=== PATIENT | female | born 1985 | race Caucasian/White ===

== ENCOUNTER 2017-12-12 09:49 | Emergency (ER) | payer SELFPAY ==
[2017-12-12 10:43] LABS: Absolute Lymphocytes (CBC) 2.7 K/uL (0.7-4.9); Absolute Monocytes 0.7 K/uL (0.1-1.3); Absolute Neutrophil 8.3 K/uL (1.8-8.0); Basophils % 1.2 % (0-1.3); Eosinophils % 1.5 % (0-4.4); Lymphocytes % 22.7 % (15.3-44.8); MCH 23.9 pg (27.0-35.0); MCV 74.7 fL (80-100); MPV 8.7 fL (7.6-11.3); Monocytes % 5.6 % (3.3-12.3); RBC Red Blood Cell Count 5.09 M/uL (3.86-4.86)
--- NOTE | 2017-12-12 10:46 | RAD REPORT ---
EXAM DESCRIPTION: RAD - Hand Right 3 View - 12/12/2017 10:39 am CLINICAL HISTORY: Fall, hand pain, pain primarily right thumb COMPARISON: None. FINDINGS: No fracture is identified. There is no dislocation or periosteal reaction noted. No forei gn body or air in the soft tissues. Soft tissue swelling is present. IMPRESSION: No fracture seen. No acute bone or joint finding.
[2017-12-12 10:48] LABS: Potassium 3.2 mEq/L (3.6-5.0)
[2017-12-12] MEDS ORDERED: cloNIDine HCl 0.1 MG TAB ONE (10:59)
[2017-12-12] MEDS ORDERED: POTASSIUM CL SA 10 MEQ TAB PO ONE (11:18)
--- NOTE | 2017-12-12 11:23 | RAD REPORT ---
EXAM DESCRIPTION: CT - Head Brain Wo Cont - 12/12/2017 11:14 am CLINICAL HISTORY: Syncope COMPARISON: October 2016 TECHNIQUE: Axial 5 mm thick images of the head were obtained without IV contrast. All CT scans are performed using dose optimization technique as appropriate and may include automated exposure control or mA/KV adjustment according to patient size. FINDINGS: No intracranial hemorrhage, mass, edema or shift of mid-line structures. No acute infarcti on changes seen. No abnormal extra-axial fluid collections. Ventricles are normal. Physiologic calcif ications are present. Mastoid air cells and visualized portions of the paranasal sinuses are clear. No acute bony findings. IMPRESSION: Negative non-contrast CT head examination. No significant change from comparison.
[2017-12-12] MEDS ORDERED: AMLODIPINE 5 MG TAB ONE (12:11)
--- NOTE | 2017-12-12 13:06 | ER ---
Nurse's Notes [facility] Name: Vero Magallanes Age: 32 yrs Sex: Female : 1985 Arrival Date: 12/12/2017 Time: 09:54 Bed 14 Private MD: Diagnosis: Syncope and collapse;Essential (primary) hypertension Presentation: 12/12 10:24 Presenting complaint: Patient states: " I have been having blackouts for about a month ph now, I had one last night walking up the steps to my porch. When I fell I landed on both of my hands but my R thumb is really swollen now,". Transition of care: patient was not received from another setting of care. Onset of symptoms was December 12, 2017. Care prior to arrival: None. 10:24 Method Of Arrival: Ambulatory ph 10:24 Acuity: CASSIDY 3 ph Triage Assessment: 10:20 Injury Description: Fell and injured her thumb, thumb is swollen, no bruising noted at rb1 this time. 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 - Social history:: Smoking status: Patient uses tobacco products, smokes one-half pack cigarettes per day. Screenin:20 Abuse screen: Denies threats or abuse. Nutritional screening: No deficits noted. rb1 Tuberculosis screening: No symptoms or risk factors identified. Fall Risk Fall in past 12 months (25 points). No secondary diagnosis (0 pts). IV access (20 points). Ambulatory Aid- None/Bed Rest/Nurse Assist (0 pts). Gait- Normal/Bed Rest/Wheelchair (0 pts) Mental Status- Oriented to own ability (0 pts). Total Amado Fall Scale indicates Low Risk Score (25-44 pts). Fall prevention measures have been instituted. Side Rails Up X 2 Placed close to Nursing Station 1:1 attendant Assigned to Pt. Frequent Obs/Assesments occuring Family Present and informed to notify staff if they need to leave bedside As available Patient and Family Educated on Fall Prevention Program and strategies. Assessment: 10:20 General: Appears in no apparent distress. comfortable, obese, Behavior is calm, rb1 cooperative, Denies fever. Pain: Complains of pain in right thumb Pain currently is 3 out of 10 on a pain scale. Neuro: Level of Consciousness is awake, alert, obeys commands, Oriented to person, place, time, situation. Cardiovascular: Capillary refill < 3 seconds is brisk in bilateral fingers. Respiratory: Reports shortness of breath on exertion Airway is patent Respiratory effort is even, unlabored, Respiratory pattern is regular, symmetrical. GI: Reports nausea. : No signs and/or symptoms were reported regarding the genitourinary system. Derm: Skin is pink, warm \\T\\ dry. Musculoskeletal: Swelling present in right thumb and right hand. 11:18 Reassessment: Patient appears in no apparent distress at this time. No changes from rb1 previously documented assessment. 12:17 Reassessment: Patient appears in no apparent distress at this time. Patient and/or rb1 family updated on plan of care and expected duration. Pain level reassessed. Patient is alert, oriented x 3, equal unlabored respirations, skin warm/dry/pink. 13:10 Reassessment: Patient appears in no apparent distress at this time. Patient and/or rb1 family updated on plan of care and expected duration. Pain level reassessed. Patient is alert, oriented x 3, equal unlabored respirations, skin warm/dry/pink. Vital Signs: 10:26 BP 208 / 113; Pulse 93; Resp 18; Temp 97.8(TE); Pulse Ox 100% on R/A; Weight 107.95 kg; ph Height 5 ft. 3 in. (160.02 cm); Pain 3/10; 10:40 BP 191 / 118; Pulse 79; Resp 17; Pulse Ox 99% on R/A; Pain 3/10; rb1 11:30 BP 173 / 106; Pulse 71; Resp 19; Pulse Ox 100% on R/A; rb1 13:01 BP 157 / 97; Pulse 58; Resp 16; Pulse Ox 96% on R/A; rb1 10:26 Body Mass Index 42.16 (107.95 kg, 160.02 cm) ph 10:40 At time of Clonidine 0.2 mg PO administration rb1 ED Course: 09:54 Patient arrived in ED. sb2 10:17 Renee Nicolas FNP-C [facility]. kb 10:17 Nakul Molina MD is Attending Physician. kb 10:20 Patient has correct armband on for positive identification. Bed in low position. Call rb1 light in reach. Side rails up X 1. Pulse ox on. NIBP on. 10:23 Jumana Leon, RN is Primary Nurse. rb1 10:26 Triage completed. ph 10:28 Arm band placed on Patient placed in an exam room. ph 10:36 Inserted saline lock: 22 gauge in left antecubital area, using aseptic technique. Blood aj1 collected. IV inserted by manager department Khoi. 11:11 CT completed. Patient tolerated procedure well. Patient moved to MO via wheelchair. Patient moved back from MO. 13:33 No provider procedures requiring assistance completed. IV discontinued, intact, rb1 bleeding controlled, No redness/swelling at site. Pressure dressing applied. Administered Medications: 10:40 Drug: cloNIDine 0.2 mg Route: PO; rb1 11:45 Follow up: Response: No adverse reaction; Blood sugar is lowered; BP 173/106, P 71. rb1 Provider notified. 11:01 Drug: Potassium Chloride 40 mEq Route: PO; rb1 11:54 Follow up: Response: No adverse reaction rb1 11:53 Drug: Norvasc 10 mg {Note: BP 173/106, P 67.} Route: PO; rb1 13:01 Follow up: Response: No adverse reaction; Blood pressure is lowered rb1 Intake: Outcome: 13:06 Discharge ordered by . kb 13:33 Discharged to home ambulatory. rb1 13:33 Condition: stable 13:33 Discharge instructions given to patient, Instructed on discharge instructions, follow up and referral plans. Demonstrated understanding of instructions, follow-up care, Prescriptions given X none 13:34 Patient left the ED. rb1 Signatures: Renee Nicolas FNP-C FNP-Ckb Johnson, Angela, RN RN aj1 Camila Cassidy RN RN Mary Dupont Jumana Leon, RN RN rb1 Myrtle Lopez sb2 Corrections: (The following items were deleted from the chart) 10:52 10:20 Fall Risk Fall in past 12 months (25 points). No secondary diagnosis (0 pts). No rb1 IV (0 pts). Ambulatory Aid- None/Bed Rest/Nurse Assist (0 pts). Gait- Normal/Bed Rest/Wheelchair (0 pts) Mental Status- Oriented to own ability (0 pts). Total Amado Fall Scale indicates Low Risk Score (25-44 pts). Fall prevention measures have been instituted. Side Rails Up X 2 Placed close to Nursing Station 1:1 attendant Assigned to Pt. Frequent Obs/Assesments occuring Family Present and informed to notify staff if they need to leave bedside As available Patient and Family Educated on Fall Prevention Program and strategies. rb1
--- NOTE | 2017-12-12 13:06 | EDPHYS ---
Physician Documentation [facility] Name: Vero Magallanes Age: 32 yrs Sex: Female : 1985 Arrival Date: 12/12/2017 Time: 09:54 Bed 14 Private MD: ED Physician Nakul Molina HPI: 12/12 10:30 This 32 yrs old Female presents to ER via Ambulatory with complaints of kb Fainting, Thumb Injury. 10:30 The patient has experienced syncope, lost consciousness. Onset: The symptoms/episode kb began/occurred last night. Duration: The patient has had multiple episodes, that last an unknown period of time. Context: the episode(s) was witnessed, by no one, occurred at home, occurred while the patient was sitting, Just prior to the episode the patient experienced fatigue. Associated injury: Right upper extremity: right hand, decreased range of motion, pain, swelling. Associated signs and symptoms: The patient has no apparent associated signs or symptoms. Current symptoms: Currently, the patient is not experiencing any symptoms, the patient feels back to baseline, no decreased level of consciousness, no confusion, no dysphasia, no headache, no paralysis, no visual changes. The patient has experienced similar episodes in the past, a few times. The patient has not recently seen a physician. Pt states she "blacked out" last night and this morning her right thumb was sore, swollen and hard to move. States she has blacked out 3 times this month. States she just gets really tired and then it happens. Denies headaches, dizziness, lightheadedness, visual changes. States she didn't take her BP meds today because she is worried that is the cause. States she was started on clonidine 0.2mg 2 months ago, which her doctor increased to 0.3mg this month because her pressure was still high. Reports she was also started on Norvasc this month, but is unsure of the dosage. . 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 - Social history:: Smoking status: Patient uses tobacco products, smokes one-half pack cigarettes per day. ROS: 10:30 Constitutional: Negative for fever, chills, and weight loss, Cardiovascular: Negative kb for chest pain, palpitations, and edema, Respiratory: Negative for shortness of breath, cough, wheezing, and pleuritic chest pain, Abdomen/GI: Negative for abdominal pain, nausea, vomiting, diarrhea, and constipation, Back: Negative for injury and pain, : Negative for injury, bleeding, discharge, and swelling, Skin: Negative for injury, rash, and discoloration. 10:30 MS/extremity: Positive for decreased range of motion, pain, swelling, of the right thumb. 10:30 Neuro: Positive for syncope. Exam: 10:30 Constitutional: This is a well developed, well nourished patient who is awake, alert, kb and in no acute distress. Head/Face: Normocephalic, atraumatic. Eyes: Pupils equal round and reactive to light, extra-ocular motions intact. Lids and lashes normal. Conjunctiva and sclera are non-icteric and not injected. Cornea within normal limits. Periorbital areas with no swelling, redness, or edema. ENT: Nares patent. No nasal discharge, no septal abnormalities noted. Tympanic membranes are normal and external auditory canals are clear. Oropharynx with no redness, swelling, or masses, exudates, or evidence of obstruction, uvula midline. Mucous membranes moist. Neck: Trachea midline, no thyromegaly or masses palpated, and no cervical lymphadenopathy. Supple, full range of motion without nuchal rigidity, or vertebral point tenderness. No Meningismus. Chest/axilla: Normal chest wall appearance and motion. Nontender with no deformity. No lesions are appreciated. Cardiovascular: Regular rate and rhythm with a normal S1 and S2. No gallops, murmurs, or rubs. Normal PMI, no JVD. No pulse deficits. Respiratory: Lungs have equal breath sounds bilaterally, clear to auscultation and percussion. No rales, rhonchi or wheezes noted. No increased work of breathing, no retractions or nasal flaring. Abdomen/GI: Soft, non-tender, with normal bowel sounds. No distension or tympany. No guarding or rebound. No evidence of tenderness throughout. Back: No spinal tenderness. No costovertebral tenderness. Full range of motion. MS/ Extremity: Pulses equal, no cyanosis. Neurovascular intact. Full, normal range of motion. Neuro: Awake and alert, GCS 15, oriented to person, place, time, and situation. Cranial nerves II-XII grossly intact. Motor strength 5/5 in all extremities. Sensory grossly intact. Cerebellar exam normal. Normal gait. 10:30 Musculoskeletal/extremity: Extremities: grossly normal except: noted in the right thumb: decreased ROM, pain, swelling, tenderness, ROM: limited active range of motion, in the right thumb, Circulation is intact in all extremities. Sensation intact. Vital Signs: 10:26 BP 208 / 113; Pulse 93; Resp 18; Temp 97.8(TE); Pulse Ox 100% on R/A; Weight 107.95 kg; ph Height 5 ft. 3 in. (160.02 cm); Pain 3/10; 10:40 BP 191 / 118; Pulse 79; Resp 17; Pulse Ox 99% on R/A; Pain 3/10; rb1 11:30 BP 173 / 106; Pulse 71; Resp 19; Pulse Ox 100% on R/A; rb1 13:01 BP 157 / 97; Pulse 58; Resp 16; Pulse Ox 96% on R/A; rb1 10:26 Body Mass Index 42.16 (107.95 kg, 160.02 cm) ph 10:40 At time of Clonidine 0.2 mg PO administration rb1 MDM: 10:17 Patient medically screened. kb 10:30 Data reviewed: vital signs, nurses notes. Data interpreted: Pulse oximetry: on room air kb is 100 %. Interpretation: normal. 13:06 Counseling: I had a detailed discussion with the patient and/or guardian regarding: the kb historical points, exam findings, and any diagnostic results supporting the discharge/admit diagnosis, lab results, radiology results, the need for outpatient follow up, a family practitioner, to return to the emergency department if symptoms worsen or persist or if there are any questions or concerns that arise at home. 12/12 10:22 Order name: CBC with Diff kb 12/12 10:22 Order name: Basic Metabolic Panel kb 12/12 10:22 Order name: CT Head Brain wo Cont kb 12/12 10:22 Order name: Hand Right 3 View XRAY kb 12/12 10:46 Order name: CBC with Automated Diff; Complete Time: 10:48 EDMS 12/12 10:49 Order name: Basic Metabolic Panel; Complete Time: 10:50 EDMS 12/12 10:22 Order name: EKG; Complete Time: 10:22 kb 12/12 10:22 Order name: EKG - Nurse/Tech; Complete Time: 10:56 kb 12/12 10:22 Order name: IV Start; Complete Time: 10:38 kb 12/12 10:47 Order name: RAD; Complete Time: 10:48 EDMS 12/12 11:24 Order name: CT; Complete Time: 11:36 EDMS Administered Medications: 10:40 Drug: cloNIDine 0.2 mg Route: PO; rb1 11:45 Follow up: Response: No adverse reaction; Blood sugar is lowered; BP 173/106, P 71. rb1 Provider notified. 11:01 Drug: Potassium Chloride 40 mEq Route: PO; rb1 11:54 Follow up: Response: No adverse reaction rb1 11:53 Drug: Norvasc 10 mg {Note: BP 173/106, P 67.} Route: PO; rb1 13:01 Follow up: Response: No adverse reaction; Blood pressure is lowered rb1 Disposition: 12/12/17 13:06 Discharged to Home. Impression: Syncope and collapse, Essential (primary) hypertension. - Condition is Stable. - Discharge Instructions: Hypertension, [id number], Syncope, [id number]. - Work release form, Medication Reconciliation Form, Thank You Letter, Antibiotic Education, Prescription Opioid Use form. - Follow up: Emergency Department; When: As needed; Reason: Worsening of condition. Follow up: Private Physician; When: 2 - 3 days; Reason: Recheck today's complaints, Continuance of care, Re-evaluation by your physician. Addendum: 12/16/2017 07:14 Co-signature as Attending Physician, Nakul Molina MD. g s Signatures: Dispatcher [facility] Renee Nicolas, CARI FUENTES-Camila Parada RN RN Jumana Leon, RN RN rb1 Nakul Molina MD MORIN gs
--- NOTE | 2017-12-12 15:57 | EKG ---
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
== END 2017-12-12 13:34 | disposition home or self-care (01) ==
LOC: ER 09:49
DX: I10 Essential (primary) hypertension (principal); F32.9 Major depressive disorder, single episode, unspecified; F17.210 Nicotine dependence, cigarettes, uncomplicated; Z88.6 Allergy status to analgesic agent
CPT/HCPCS: 36415; 70450; 80048; 85025; 93005; 99284

== ENCOUNTER 2018-05-08 18:31 | Inpatient (IN) | payer SELFPAY ==
[2018-05-08] MEDS ORDERED: LABETALOL 20 MG/4ML SYRINGE IV ONE ×2 (19:09→21:37)
[2018-05-08 19:46] LABS: Absolute Lymphocytes (CBC) 2.5 K/uL (0.7-4.9); Absolute Monocytes 0.9 K/uL (0.1-1.3); Absolute Neutrophil 12.3 K/uL (1.8-8.0); Basophils % 0.2 % (0-1.3); Eosinophils % 1.2 % (0-4.4); Hematocrit 39.9 % (36.0-45.0); Lymphocytes % 15.8 % (15.3-44.8); MCH 23.2 pg (27.0-35.0); MCV 72.4 fL (80-100); Monocytes % 5.7 % (3.3-12.3); RBC Red Blood Cell Count 5.52 M/uL (3.86-4.86)
[2018-05-08 19:47] LABS: BUN Blood Urea Nitrogen 6 mg/dL (7-18); Bicarbonate 26 mmol/L (21-32); Glucose Level 198 mg/dL (74-106); Sodium Level 134 mmol/L (136-145)
[2018-05-08 19:49] LABS: Potassium 2.5 mmol/L (3.5-5.1)
[2018-05-08] MEDS ORDERED: NA CHLORIDE 0.9% 250 ML ONE (20:23)
[2018-05-08] MEDS ORDERED: POTASSIUM CL SA 10 MEQ TAB PO ONE (20:23)
[2018-05-08] MEDS ORDERED: KCL 20 MEQ/100 mL IVPB 20 MEQ/100 ML BAG IV ONE (20:23)
--- NOTE | 2018-05-08 20:46 | RAD REPORT ---
EXAM DESCRIPTION: CT - Head Brain Wo Cont - 05/08/2018 8:36 pm CLINICAL HISTORY: Headache, nausea, facial numbness COMPARISON: CT head December 12 TECHNIQUE: Axial 5 mm thick images of the head were obtained without IV contrast. All CT scans are performed using dose optimization technique as appropriate and may include automated exposure control or mA/KV adjustment according to patient size. FINDINGS: No intracranial hemorrhage, mass, edema or shift of mid-line structures. No acute cortical based infarction seen. A 6 millimeter area of diminished attenuation is present in the right frontal lobe white matter near the lateral ventricle. This is new from the November examination. Diminished att enuation at the genu of the left internal capsule is similar to the comparison. There is additional d iminished attenuation in the posterior limb internal capsule on the left also stable from prior imagi ng. Ventricles are normal. Mastoid air cells and visualized portions of the paranasal sinuses are clear. No acute bony findings. IMPRESSION: No intracranial hemorrhage and no acute cortical based infarction. New 6 mm area of diminished attenuation right frontal lobe white matter. Although the patient is you ng, an acute or subacute ischemic injury is not excluded. Diminished attenuation in the genu and posterior limb internal capsule on the left stable from prior imaging. Patient has multiple sites of abnormal attenuation not typical for a patient this age. Follow-up MR ivania baron would be recommended.
--- NOTE | 2018-05-08 21:18 | EDPHYS ---
Physician Documentation [facility] Name: Vero Magallanes Age: 32 yrs Sex: Female : 1985 Arrival Date: 05/08/2018 Time: 18:33 Bed 7 Private MD: None, None ED Physician Armando Jennings HPI: 05/08 19:14 This 32 yrs old Female presents to ER via Ambulatory with complaints of jr8 Headache, Vomiting. 19:14 The patient complains of pain to the top of head and forehead. The patient describes jr8 the headache as throbbing. Onset: The symptoms/episode began/occurred acutely, today. Associated signs and symptoms: Pertinent positives: nausea, Photophobia. Severity of symptoms: At its worst the pain was moderate, in the emergency department the pain is unchanged. Headache History: Denies prior headaches. The symptoms are alleviated by nothing. The patient has not experienced similar symptoms in the past. The patient has not recently seen a physician. History of hypertension. Stated that she was told to alternate her BP meds but to only take one med per day. Stated that earlier this morning started with headache that has not been relieved. 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 - Social history:: Smoking status: Patient uses tobacco products, smokes one-half pack cigarettes per day. - Ebola Screening: : Patient negative for fever greater than or equal to 101.5 degrees Fahrenheit, and additional compatible Ebola Virus Disease symptoms Patient denies exposure to infectious person Patient denies travel to an Ebola-affected area in the 21 days before illness onset No symptoms or risks identified at this time. ROS: 19:14 Eyes: Negative for injury, pain, redness, and discharge, ENT: Negative for injury, jr8 pain, and discharge, Neck: Negative for injury, pain, and swelling, Cardiovascular: Negative for chest pain, palpitations, and edema, Respiratory: Negative for shortness of breath, cough, wheezing, and pleuritic chest pain, Back: Negative for injury and pain, MS/Extremity: Negative for injury and deformity, Skin: Negative for injury, rash, and discoloration. 19:14 Abdomen/GI: Positive for nausea, Negative for abdominal pain, vomiting, diarrhea, constipation, abdominal cramps, abdominal distension, anorexia, dysphagia, hematemesis, black/tarry stool, rectal pain, rectal bleeding, bowel incontinence, flatulence. 19:14 Neuro: Positive for headache, tingling, visual changes, Negative for altered mental status, dizziness, gait disturbance, hearing loss, loss of consciousness, numbness, seizure activity, speech changes, syncope, near syncope, tingling, tinnitus, tremor, weakness. Exam: 19:14 Eyes: Pupils equal round and reactive to light, extra-ocular motions intact. Lids and jr8 lashes normal. Conjunctiva and sclera are non-icteric and not injected. Cornea within normal limits. Periorbital areas with no swelling, redness, or edema. ENT: Nares patent. No nasal discharge, no septal abnormalities noted. Tympanic membranes are normal and external auditory canals are clear. Oropharynx with no redness, swelling, or masses, exudates, or evidence of obstruction, uvula midline. Mucous membranes moist. Neck: Trachea midline, no thyromegaly or masses palpated, and no cervical lymphadenopathy. Supple, full range of motion without nuchal rigidity, or vertebral point tenderness. No Meningismus. Cardiovascular: Regular rate and rhythm with a normal S1 and S2. No gallops, murmurs, or rubs. Normal PMI, no JVD. No pulse deficits. Respiratory: Lungs have equal breath sounds bilaterally, clear to auscultation and percussion. No rales, rhonchi or wheezes noted. No increased work of breathing, no retractions or nasal flaring. Abdomen/GI: Soft, non-tender, with normal bowel sounds. No distension or tympany. No guarding or rebound. No evidence of tenderness throughout. Back: No spinal tenderness. No costovertebral tenderness. Full range of motion. Skin: Warm, dry with normal turgor. Normal color with no rashes, no lesions, and no evidence of cellulitis. MS/ Extremity: Pulses equal, no cyanosis. Neurovascular intact. Full, normal range of motion. Neuro: Awake and alert, GCS 15, oriented to person, place, time, and situation. Cranial nerves II-XII grossly intact. Motor strength 5/5 in all extremities. Sensory grossly intact. Cerebellar exam normal. Normal gait. Slight nasolabial fold difference to right side Vital Signs: 18:49 BP 227 / 130; Pulse 97; Resp 15; Temp 98.4; Pulse Ox 100% on R/A; Weight 104.33 kg; aj Height 5 ft. 4 in. (162.56 cm); 19:14 BP 185 / 100; Pulse 76; Resp 18; Pulse Ox 100% on R/A; aa1 20:00 BP 180 / 73; Pulse 75; Resp 16; Pulse Ox 98% on R/A; aa1 20:48 BP 196 / 120; Pulse 80; Resp 18; Pulse Ox 98% on R/A; aa1 21:00 BP 197 / 115; Pulse 84; Resp 18; Pulse Ox 99% on R/A; aa1 21:17 BP 185 / 98; Pulse 86; Resp 18; Pulse Ox 98% on R/A; aa1 22:10 BP 160 / 101; Pulse 75; Resp 18; Pulse Ox 97% on R/A; aa1 23:00 BP 170 / 108; Pulse 73; Resp 18; Pulse Ox 97% on R/A; aa1 23:41 BP 166 / 100; Pulse 78; Resp 16; Pulse Ox 100% on R/A; aa1 05/09 00:07 BP 168 / 98; Pulse 75; Resp 16; Pulse Ox 97% on R/A; tl2 00:40 BP 170 / 92; Pulse 74; Resp 16; Pulse Ox 97% on R/A; aa1 05/08 18:49 Body Mass Index 39.48 (104.33 kg, 162.56 cm) NIH Stroke Scale Scores: 05/08 19:14 NIHSS Score: 1 jr8 MDM: 18:52 Patient medically screened. jr8 19:14 Data reviewed: vital signs, nurses notes, lab test result(s), EKG, radiologic studies, jr8 CT scan. Data interpreted: Pulse oximetry: on room air is 100 %. Interpretation: normal. Counseling: I had a detailed discussion with the patient and/or guardian regarding: the historical points, exam findings, and any diagnostic results supporting the discharge/admit diagnosis, lab results, radiology results, the need for further work-up and treatment in the hospital. ED course: Consulted Dr. Arevalo who will see patient. Patient admitted to Dr. Calvert to ICU for hypertension control . 21:15 ED course: Unknown onset of when she had facial asymmetry. Could not tell until looking jr8 in mirror. [place] the tingling early this AM. Patient is not a candidate for tPA due to HTN and time of onset. . 05/08 18:52 Order name: CBC with Diff; Complete Time: 20:08 [facility] 05/08 18:52 Order name: Basic Metabolic Panel; Complete Time: 22:11 [facility] 05/08 21:15 Order name: PT-INR; Complete Time: 22:57 [facility] 05/08 21:15 Order name: Ptt, Activated; Complete Time: 22:57 [facility] 05/08 21:18 Order name: Liver (Hepatic) Function; Complete Time: 22:11 [facility] 05/08 21:18 Order name: Magnesium; Complete Time: 22:11 [facility] 05/08 22:31 Order name: CBC with Automated Diff [facility] 05/08 22:31 Order name: CBC with Automated Diff [facility] 05/08 22:31 Order name: Comprehensive Metabolic Panel [facility] 05/08 22:31 Order name: Comprehensive Metabolic Panel [facility] 05/08 22:31 Order name: Lipid Profile [facility] 05/08 22:31 Order name: Lipid Profile [facility] 05/08 19:14 Order name: CT Head Brain wo Cont; Complete Time: 20:47 [facility] 05/08 21:15 Order name: XRAY Chest (1 view) [facility] 05/08 22:16 Order name: Stroke Protocol [facility] 05/08 22:31 Order name: Echo with Doppler [facility] 05/08 22:31 Order name: Magnesium [facility] 05/08 22:31 Order name: Magnesium [facility] 05/08 22:31 Order name: Phosphorus [facility] 05/08 22:31 Order name: Phosphorus [facility] 05/08 22:31 Order name: Chest Pa And Lat (2 Views) [facility] 05/08 18:52 Order name: IV; Complete Time: 19:13 [facility] 05/08 18:52 Order name: EKG - Nurse/Tech; Complete Time: 19:13 8 05/08 22:16 Order name: CONS Physician Consult [facility] 05/08 22:30 Order name: NPO [facility] 05/08 22:30 Order name: NPO [facility] 05/08 22:31 Order name: Physical Therapy Consult [facility] 05/08 22:31 Order name: Speech Therapy Consult [facility] 05/08 22:31 Order name: NPO [facility] 05/08 22:31 Order name: EKG Electrocardiogram [facility] Administered Medications: 19:10 Drug: Labetalol 20 mg Route: IVP; Infused Over: 2 mins; Site: right antecubital; aa1 20:00 Follow up: Response: No adverse reaction; Blood pressure is lowered aa1 20:50 Drug: Potassium Chloride 40 mEq Route: PO; aa1 21:54 Follow up: Response: No adverse reaction aa1 20:50 Drug: Potassium Chloride 20 mEq Route: IV; Rate: calculated rate; Site: right aa1 antecubital; 22:50 Follow up: IV Status: Completed infusion aa1 21:40 Drug: Atorvastatin 40 mg Route: PO; aa1 23:43 Follow up: Response: No adverse reaction aa1 21:40 Drug: PlaVIX 75 mg Route: PO; aa1 23:46 Follow up: Response: No adverse reaction aa1 21:40 Drug: Aspirin Chewable Tablet 162 mg Route: PO; aa1 23:45 Follow up: Response: No adverse reaction aa1 21:41 Drug: Reglan 10 mg Route: IVP; Site: right antecubital; aa1 23:45 Follow up: Response: No adverse reaction; Marked relief of symptoms aa1 21:43 Drug: Benadryl 25 mg Route: IVP; Site: right antecubital; aa1 23:43 Follow up: Response: No adverse reaction; Marked relief of symptoms aa1 21:44 Drug: Decadron - Dexamethasone 10 mg Route: IVP; Site: right antecubital; aa1 23:43 Follow up: Response: No adverse reaction; Marked relief of symptoms aa1 21:45 Drug: Labetalol 10 mg Route: IVP; Infused Over: 2 mins; Site: right antecubital; aa1 23:44 Follow up: Response: No adverse reaction; Blood pressure is lowered aa1 Disposition: 05/09 09:20 Co-signature as Attending Physician, Armando Jennings MD I agree with the assessment and [facility] plan of care. Disposition: 05/08/18 21:17 Hospitalization ordered by Sue Calvert for Inpatient Admission. Preliminary diagnosis are Hypertensive Emergency, Cerebral infarction. - Bed requested for Intensive Care Unit. - Status is Inpatient Admission. aa1 - Condition is Fair. - Problem is new. - Symptoms have improved. UTI on Admission? No NIH Stroke Scale - NIH Stroke Score Date: 05/08/2018 Time: 19:14 Total Score = 1 1a. Level of Consciousness (LOC) - 0(Alert) 1b. Level of Consciousness (LOC) (Year \T\ Age) - 0(Both) 1c. LOC Commands (Open \T\ Closes Eyes/Steward/Stewardess Smoke Room) - 0(Both) 2. Best Gaze (Lateral Gaze Paresis) - 0(Normal) 3. Visual Field Loss - 0(No visual loss) 4. Facial Palsy - 1(Minor Paralysis) 5a. Left Arm: Motor (10-second hold) - 0(No drift) 5b. Right Arm: Motor (10-second hold) - 0(No drift) 6a. Left Leg: Motor (5-second hold - always test supine) - 0(No drift) 6b. Right Leg: Motor (5-second hold - always test supine) - 0(No drift) 7. Limb Ataxia (finger/nose \T\ heel/valentino - test with eyes open) - 0(Absent) 8. Sensory Loss (pinprick arms/legs/face) - 0(Normal) 9. Best Language: Aphasia (description/naming/reading) - 0(No aphasia) 10. Dysarthria (speech clarity - read or repeat words) - 0(Normal) 11. Extinction and Inattention (visual/tactile/auditory/spatial/personal) - 0(No abnormality) Initials: jrDonny Signatures: Dispatcher [employer] Gogo Heller RN RN aa1 Beatriz Montague RN RN aj Anderson, Corey, MD MD cha Roszak, Josh, PA PA jr8 Cynthia Dunne RN RN cg Corrections: (The following items were deleted from the chart) 05/08 21:12 19:14 Onset: The symptoms/episode began/occurred acutely, today, jr8 jr8 21:12 19:14 History of hypertension. Stated that she was told to alternate her BP jr8 meds but to only take one med per day . jr8 21:12 19:14 Neuro: Positive for headache, visual changes, Negative for altered mental jr8 status, dizziness, gait disturbance, hearing loss, loss of consciousness, numbness, seizure activity, speech changes, syncope, near syncope, tingling, tinnitus, tremor, weakness, jr8 21:13 19:14 Eyes: Pupils equal round and reactive to light, extra-ocular motions jr8 intact. Lids and lashes normal. Conjunctiva and sclera are non-icteric and not injected. Cornea within normal limits. Periorbital areas with no swelling, redness, or edema. ENT: Nares patent. No nasal discharge, no septal abnormalities noted. Tympanic membranes are normal and external auditory canals are clear. Oropharynx with no redness, swelling, or masses, exudates, or evidence of obstruction, uvula midline. Mucous membranes moist. Neck: Trachea midline, no thyromegaly or masses palpated, and no cervical lymphadenopathy. Supple, full range of motion without nuchal rigidity, or vertebral point tenderness. No Meningismus. Cardiovascular: Regular rate and rhythm with a normal S1 and S2. No gallops, murmurs, or rubs. Normal PMI, no JVD. No pulse deficits. Respiratory: Lungs have equal breath sounds bilaterally, clear to auscultation and percussion. No rales, rhonchi or wheezes noted. No increased work of breathing, no retractions or nasal flaring. Abdomen/GI: Soft, non-tender, with normal bowel sounds. No distension or tympany. No guarding or rebound. No evidence of tenderness throughout. Back: No spinal tenderness. No costovertebral tenderness. Full range of motion. Skin: Warm, dry with normal turgor. Normal color with no rashes, no lesions, and no evidence of cellulitis. MS/ Extremity: Pulses equal, no cyanosis. Neurovascular intact. Full, normal range of motion. Neuro: Awake and alert, GCS 15, oriented to person, place, time, and situation. Cranial nerves II-XII grossly intact. Motor strength 5/5 in all extremities. Sensory grossly intact. Cerebellar exam normal. Normal gait. jr8 21:17 21:15 HEPATIC FUNCTION+C.LAB.BRZ ordered. EDOH EDMS 21:17 21:15 MAGNESIUM+C.LAB.BRZ ordered. EDOH EDOH 22:19 21:17 Hospitalization Ordered by Sue Calvert MD for Inpatient Admission. cg Preliminary diagnosis is Hypertensive Emergency; Cerebral infarction. Bed requested for Intensive Care Unit. Status is Inpatient Admission. Condition is Fair. Problem is new. Symptoms have improved. UTI on Admission? No. jr8 05/09 01:07 05/08 22:19 05/08/2018 21:17 Hospitalization Ordered by Sue Calvert MD for aa1 Inpatient Admission. Preliminary diagnosis is Hypertensive Emergency; Cerebral infarction. Bed requested for Intensive Care Unit. Status is Inpatient Admission. Condition is Fair. Problem is new. Symptoms have improved. UTI on Admission? No. cg
--- NOTE | 2018-05-08 21:18 | ER ---
Nurse's Notes [facility] Name: Vero Magallanes Age: 32 yrs Sex: Female : 1985 Arrival Date: 05/08/2018 Time: 18:33 Bed 7 Private MD: None, None Diagnosis: Hypertensive Emergency;Cerebral infarction Presentation: 05/08 18:46 Presenting complaint: Patient states: Headache, nausea, and lip numbness that patient aj woke up with. Transition of care: patient was not received from another setting of care. Onset of symptoms was May 08, 2018. Risk Assessment: Do you want to hurt yourself or someone else? Patient reports no desire to harm self or others. Initial Sepsis Screen: Does the patient meet any 2 criteria? No. Patient's initial sepsis screen is negative. Does the patient have a suspected source of infection? No. Patient's initial sepsis screen is negative. Care prior to arrival: None. 18:46 Method Of Arrival: Ambulatory aj 18:46 Acuity: CASSIDY 2 aj Triage Assessment: 18:49 Headache History: The patient has had previous headaches. General: Appears in no aj apparent distress. comfortable, Behavior is calm, cooperative, appropriate for age. Pain: Complains of pain in face and scalp. Neuro: Level of Consciousness is awake, alert, obeys commands, Oriented to person, place, time, situation, Appropriate for age Upper Leather Cutter are equal bilaterally Moves all extremities. Full function Gait is steady, Speech is normal, Facial symmetry appears normal, Reports dizziness, headache. Respiratory: Airway is patent Respiratory effort is even, unlabored, Respiratory pattern is regular, symmetrical. Derm: Skin is intact, is healthy with good turgor, Skin is pink, warm \T\ dry. normal. 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 - Social history:: Smoking status: Patient uses tobacco products, smokes one-half pack cigarettes per day. - Ebola Screening: : Patient negative for fever greater than or equal to 101.5 degrees Fahrenheit, and additional compatible Ebola Virus Disease symptoms Patient denies exposure to infectious person Patient denies travel to an Ebola-affected area in the 21 days before illness onset No symptoms or risks identified at this time. Screenin:17 Abuse screen: Denies threats or abuse. Denies injuries from another. Nutritional aa1 screening: No deficits noted. Tuberculosis screening: No symptoms or risk factors identified. Fall Risk None identified. Assessment: 19:17 General: Appears in no apparent distress. comfortable, Behavior is calm, cooperative, aa1 appropriate for age. Pain: Complains of pain in forehead and top of head Quality of pain is described as aching, throbbing, Pain began this morning Is continuous. Neuro: Level of Consciousness is awake, alert, obeys commands, Oriented to person, place, time, situation, Moves all extremities. Full function Speech is normal, Facial symmetry appears normal, Pupils are PERRLA, Reports headache parietal area, frontal area. Cardiovascular: Denies chest pain, palpitations, shortness of breath. Respiratory: Airway is patent Respiratory effort is even, unlabored, Respiratory pattern is regular, symmetrical. GI: Reports nausea. : No signs and/or symptoms were reported regarding the genitourinary system. EENT: No signs and/or symptoms were reported regarding the EENT system. Derm: Skin is intact, is healthy with good turgor, Skin is pink, warm \T\ dry. Musculoskeletal: Circulation, motion, and sensation intact. Capillary refill < 3 seconds. 20:48 Reassessment: Patient appears in no apparent distress at this time. Patient and/or aa1 family updated on plan of care and expected duration. Pain level reassessed. Patient is alert, oriented x 3, equal unlabored respirations, skin warm/dry/pink. Pt back from CT. BP increased at this time. PA notified. 21:17 Reassessment: Per PA, hold Cardene drip at this time and repeat labetalol IVP instead aa1 since BP has decreased to 185/98. Will continue to monitor. Awaiting bed assignment for ICU. 22:00 Reassessment: Patient appears in no apparent distress at this time. Patient and/or aa1 family updated on plan of care and expected duration. Pain level reassessed. Patient is alert, oriented x 3, equal unlabored respirations, skin warm/dry/pink. Awaiting admission to ICU Patient states feeling better. 23:13 Reassessment: Patient appears in no apparent distress at this time. Patient and/or aa1 family updated on plan of care and expected duration. Pain level reassessed. Patient is alert, oriented x 3, equal unlabored respirations, skin warm/dry/pink. Attempted to call report to ICU, was told nurse is currently receiving another pt and will call back when ready for pt to come up to unit. 05/09 00:25 Reassessment: Patient appears in no apparent distress at this time. Patient and/or aa1 family updated on plan of care and expected duration. Pain level reassessed. Patient is alert, oriented x 3, equal unlabored respirations, skin warm/dry/pink. Spoke with ICU staff again. Nurse is still in with previous admission and will call back when pt can come to the unit. 00:40 Reassessment: Patient appears in no apparent distress at this time. Patient and/or aa1 family updated on plan of care and expected duration. Pain level reassessed. Patient is alert, oriented x 3, equal unlabored respirations, skin warm/dry/pink. Report given to Jeff in ICU. Vital Signs: 05/08 18:49 BP 227 / 130; Pulse 97; Resp 15; Temp 98.4; Pulse Ox 100% on R/A; Weight 104.33 kg; aj Height 5 ft. 4 in. (162.56 cm); 19:14 BP 185 / 100; Pulse 76; Resp 18; Pulse Ox 100% on R/A; aa1 20:00 BP 180 / 73; Pulse 75; Resp 16; Pulse Ox 98% on R/A; aa1 20:48 BP 196 / 120; Pulse 80; Resp 18; Pulse Ox 98% on R/A; aa1 21:00 BP 197 / 115; Pulse 84; Resp 18; Pulse Ox 99% on R/A; aa1 21:17 BP 185 / 98; Pulse 86; Resp 18; Pulse Ox 98% on R/A; aa1 22:10 BP 160 / 101; Pulse 75; Resp 18; Pulse Ox 97% on R/A; aa1 23:00 BP 170 / 108; Pulse 73; Resp 18; Pulse Ox 97% on R/A; aa1 23:41 BP 166 / 100; Pulse 78; Resp 16; Pulse Ox 100% on R/A; aa1 05/09 00:07 BP 168 / 98; Pulse 75; Resp 16; Pulse Ox 97% on R/A; tl2 00:40 BP 170 / 92; Pulse 74; Resp 16; Pulse Ox 97% on R/A; aa1 05/08 18:49 Body Mass Index 39.48 (104.33 kg, 162.56 cm) aj NIH Stroke Scale Scores: 05/08 19:14 NIHSS Score: 1 [facility] [[email or web address] ED Course: 18:33 Patient arrived in ED. mr 18:33 None, None is Private Physician. mr 18:47 Triage completed. aj 18:49 Arm band placed on right wrist. Patient placed in an exam room. aj 18:51 Darwin Shah PA is PHCP. jr8 18:51 Armando Jennings MD is Attending Physician. jr8 19:01 Gogo Corea, TRACEY is Primary Nurse. aa1 19:05 Initial lab(s) drawn, by me, sent to lab. EKG done, by ED staff, reviewed by Armando Jennings MD. Inserted saline lock: 20 gauge in right antecubital area, using aseptic technique. ,using aseptic technique. by antonietta Jack Blood collected. 19:17 Patient has correct armband on for positive identification. Bed in low position. Call aa1 light in reach. change number operator on. Pulse ox on. NIBP on. 20:35 CT completed. Patient tolerated procedure well. Radiology exam delayed due to ct order cw1 never printed to ct. Patient moved back from CT. 20:36 CT Head Brain wo Cont In Process Unspecified. EDMS 21:16 Sue Calvert MD is Hospitalizing Provider. jr8 22:15 XRAY Chest (1 view) In Process Unspecified. EDMS 22:52 No provider procedures requiring assistance completed. Patient admitted, IV remains in aa1 place. Administered Medications: 19:10 Drug: Labetalol 20 mg Route: IVP; Infused Over: 2 mins; Site: right antecubital; aa1 20:00 Follow up: Response: No adverse reaction; Blood pressure is lowered aa1 20:50 Drug: Potassium Chloride 40 mEq Route: PO; aa1 21:54 Follow up: Response: No adverse reaction aa1 20:50 Drug: Potassium Chloride 20 mEq Route: IV; Rate: calculated rate; Site: right aa1 antecubital; 22:50 Follow up: IV Status: Completed infusion aa1 21:40 Drug: Atorvastatin 40 mg Route: PO; aa1 23:43 Follow up: Response: No adverse reaction aa1 21:40 Drug: PlaVIX 75 mg Route: PO; aa1 23:46 Follow up: Response: No adverse reaction aa1 21:40 Drug: Aspirin Chewable Tablet 162 mg Route: PO; aa1 23:45 Follow up: Response: No adverse reaction aa1 21:41 Drug: Reglan 10 mg Route: IVP; Site: right antecubital; aa1 23:45 Follow up: Response: No adverse reaction; Marked relief of symptoms aa1 21:43 Drug: Benadryl 25 mg Route: IVP; Site: right antecubital; aa1 23:43 Follow up: Response: No adverse reaction; Marked relief of symptoms aa1 21:44 Drug: Decadron - Dexamethasone 10 mg Route: IVP; Site: right antecubital; aa1 23:43 Follow up: Response: No adverse reaction; Marked relief of symptoms aa1 21:45 Drug: Labetalol 10 mg Route: IVP; Infused Over: 2 mins; Site: right antecubital; aa1 23:44 Follow up: Response: No adverse reaction; Blood pressure is lowered aa1 Outcome: 21:17 Decision to Hospitalize by Provider. jr8 05/09 00:55 Admitted to ICU accompanied by nurse, accompanied by tech, via stretcher, room 7, on aa1 monitor, with chart, Report called to Jeff Condition: stable Instructed on the need for admit, Demonstrated understanding of instructions. 01:07 Patient left the ED. aa1 NIH Stroke Scale - NIH Stroke Score Date: 05/08/2018 Time: 19:14 Total Score = 1 1a. Level of Consciousness (LOC) - 0(Alert) 1b. Level of Consciousness (LOC) (Year \T\ Age) - 0(Both) 1c. 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 Best Gaze (Lateral Gaze Paresis) - 0(Normal) 3. Visual Field Loss - 0(No visual loss) 4. Facial Palsy - 1(Minor Paralysis) 5a. Left Arm: Motor (10-second hold) - 0(No drift) 5b. Right Arm: Motor (10-second hold) - 0(No drift) 6a. Left Leg: Motor (5-second hold - always test supine) - 0(No drift) 6b. Right Leg: Motor (5-second hold - always test supine) - 0(No drift) 7. Limb Ataxia (finger/nose \T\ heel/valentino - test with eyes open) - 0(Absent) 8. Sensory Loss (pinprick arms/legs/face) - 0(Normal) 9. Best Language: Aphasia (description/naming/reading) - 0(No aphasia) 10. Dysarthria (speech clarity - read or repeat words) - 0(Normal) 11. Extinction and Inattention (visual/tactile/auditory/spatial/personal) - 0(No abnormality) Initials: jr8 Signatures: Dispatcher [employer] EDGogo Bahena RN RN aa1 Beatriz Montague RN Larisa De Souza mr Garrick, Albertina cw1 Darwin Shah PA PA jr8 Billie Zhang RN RN tl2
[2018-05-08] MEDS ORDERED: ASPIRIN 81 MG CHEWABLE TABLET ONE (21:36)
[2018-05-08] MEDS ORDERED: CLOPIDOGREL 75 MG TABLET ONE (21:36)
[2018-05-08] MEDS ORDERED: DIPHENHYDRAMINE 50 MG/ML VIAL ONE (21:37)
[2018-05-08] MEDS ORDERED: METOCLOPRAMIDE 10 MG/2mL INJ ONE (21:37)
[2018-05-08] MEDS ORDERED: ATORVASTATIN 20 MG TAB ONE (21:37)
[2018-05-08] MEDS ORDERED: DEXAMETHASONE 10 MG/ML VIAL ONE (21:37)
[2018-05-08 22:03] LABS: Protime INR 1.03
[2018-05-08 22:08] LABS: ALT/SGPT 38 U/L (12-78); AST/SGOT 22 U/L (15-37); Albumin 3.6 g/dL (3.4-5.0); Alkaline Phosphatase 91 U/L (45-117); Bilirubin Direct < 0.1 mg/dL (0-0.2); Bilirubin Total 0.3 mg/dL (0.2-1.0); Magnesium 1.9 mg/dL (1.8-2.4); Protein, Total 7.6 g/dL (6.4-8.2)
[2018-05-08] MEDS ORDERED: NA CHLORIDE 0.9% 100 ML IV ONE (22:26)
[2018-05-08] MEDS ORDERED: MAGNESIUM HYDROXIDE 8% 30 ML PO PRN (22:28)
[2018-05-08] MEDS ORDERED: ONDANSETRON 4 MG/2 ML VIAL IV PRN (22:28)
[2018-05-08] MEDS ORDERED: NA CHLORIDE 0.9% 1,000 ML IV SCH (23:00)
[2018-05-09] MEDS: KCL 20 MEQ/100 mL IVPB 20 MEQ/100 ML BAG IV SCH ×2 (02:37→03:48)
[2018-05-09] MEDS ORDERED: HYDRALAZINE HCL 20 MG/ML VIAL IV ONE (03:37)
[2018-05-09] MEDS: ACETAMINOPHEN 500 MG TAB PO PRN ×2 (03:59→09:55)
[2018-05-09 05:28] LABS: Hematocrit 40.2 % (36.0-45.0); MCH 23.3 pg (27.0-35.0); MCV 72.4 fL (80-100); RBC Red Blood Cell Count 5.55 M/uL (3.86-4.86)
[2018-05-09 05:29] LABS: Absolute Lymphocytes (CBC) 1.1 K/uL (0.7-4.9); Absolute Monocytes 0.1 K/uL (0.1-1.3); Absolute Neutrophil 13.6 K/uL (1.8-8.0); Basophils % 0.6 % (0-1.3); Lymphocytes % 7.3 % (15.3-44.8); MPV 8.8 fL (7.6-11.3); Monocytes % 0.4 % (3.3-12.3)
[2018-05-09] MEDS ORDERED: LABETALOL 20 MG/4ML SYRINGE IV ONE (05:55)
[2018-05-09 06:16] LABS: Blood Morphology Comment NOT SEEN (NOT SEEN); Platelet Estimate ADEQ
[2018-05-09 06:29] LABS: Albumin 3.6 g/dL (3.4-5.0); Bilirubin Total 0.4 mg/dL (0.2-1.0); Potassium 3.4 mmol/L (3.5-5.1); Protein, Total 7.7 g/dL (6.4-8.2)
[2018-05-09 06:51] LABS: Phosphorus 0.9 mg/dL (2.5-4.9)
[2018-05-09] MEDS ORDERED: POTASSIUM PHOS 30 MM in NA CHLORIDE 0.9% 500 ML IV ONE (07:07)
[2018-05-09] MEDS ORDERED: LABETALOL 20 MG/4ML SYRINGE IV PRN (07:23)
[2018-05-09] MEDS: METOPROLOL TAR 50 MG TAB PO SCH ×2 (07:45→09:00)
--- NOTE | 2018-05-09 07:46 | P.HP ---
Certification for Inpatient Patient admitted to: Inpatient With expected LOS: >2 Midnights Patient will require the following post-hospital care: Rehabilitation Practitioner: I am a practitioner with admitting privileges, knowledge of patient current condition, hospital course, and medical plan of care. Services: Services provided to patient in accordance with Admission requirements found in Title 42 Section 412.3 of the Code of Federal Regulations Patient History Date of Service: 05/08/18 Reason for admission: Hypertensive emergency History of Present Illness: Patient is a 32-year-old female who presents to the hospital with poorly controlled blood pressure. Her blood pressure has been poorly controlled for quite a while. She states that her normal blood pressure runs between 170-190/ 106. She has not seen a primary care provider regarding this except for the PAs she has seen at the [facility] [place] in [place]. She states that she has been taking carvedilol lisinopril in [facility] to keep her blood pressure controlled. However, her blood pressure still runs from 170s to 180s over 100. she started having headaches and paresthesias around her lips so she came into the hospital for further evaluation. She denies any other weakness. She does have a slight droop around the nasolabial folds. She is also complaining of blurred vision at her right eye. She also has a persistent headache. In the emergency room they were unable to get a timeline on when her symptoms started. The CT revealed findings of a possible subacute acute stroke. She will need an MRI of her brain to further evaluate this. We have also put her on a nicardipine drip to lower her blood pressure gradually. Roughly 25% over the 1st 24 hrs, and then try to completely corrected in the next 72 hr. We have also gotten a neurology consultation as well. Allergies OPIOID ANALGESICS Adverse Reaction (Uncoded 05/09/18 02:13) Unknown Home Medications: Amlodipine [Norvasc] 10 mg PO DAILY 05/09/18 Carvedilol [Coreg] 25 mg PO BID 05/09/18 Diclofenac Na [Voltaren D.R] 75 mg PO BID 05/09/18 Gabapentin [Neurontin] 300 mg PO TID 05/09/18 Potassium 99 mg PO DAILY 05/09/18 - Past Medical/Surgical History Has patient received pneumonia vaccine in the past: Yes Diabetic: No -: Depression -: HTN -: C section -: Cholecyctectomy -: tubal ligation - Family History Father Medical History: Hypertension Mother Medical History: Hypertension, Other (see notes) Notes: TIA - Social History Smoking Status: Current every day smoker Alcohol use: No CD- Drugs: No Caffeine use: Yes Place of Residence: Home Review of Systems 10-point ROS is otherwise unremarkable Physical Examination - Vital Signs Temperature: 99.2 F Blood Pressure: 189/105 Pulse: 86 Respirations: 17 Pulse Ox (%): 99 - Physical Exam General: Alert, In no apparent distress, Oriented x3 HEENT: Atraumatic, PERRLA, Mucous membr. moist/pink, EOMI, Sclerae nonicteric Neck: Supple, 2+ carotid pulse no bruit, No LAD, Without JVD or thyroid abnormality Respiratory: Clear to auscultation bilaterally, Normal air movement Cardiovascular: Regular rate/rhythm, Normal S1 S2, No murmurs Gastrointestinal: Normal bowel sounds, Soft and benign, Non-distended, No tenderness Musculoskeletal: No clubbing, No swelling, No tenderness Integumentary: No rashes Neurological: Normal gait, Normal speech, Normal tone, Normal affect, Abnormal strength, Abnormal sensation Lymphatics: No axilla or inguinal lymphadenopathy - Studies Laboratory Data (last 24 hrs) 05/08/18 21:45: PT 12.2, INR 1.03, APTT 31.0 05/08/18 21:15: Magnesium Cancelled, Total Bilirubin Cancelled, AST Cancelled, ALT Cancelled, Alkaline Phosphatase Cancelled 05/08/18 19:10: Sodium 134 L, Potassium 2.5 L*, BUN 6 L, Creatinine 0.90, Glucose 198 H, Magnesium 1.9, Total Bilirubin 0.3, AST 22, ALT 38, Alkaline Phosphatase 91 05/08/18 19:10: WBC 16.0 H, Hgb 12.8, Hct 39.9, Plt Count 296 Assessment & Plan - Problems (Diagnosis) (1) Hypertensive emergency Current Visit: Yes Status: Acute (2) Blurred vision Current Visit: Yes Status: Acute (3) Chest discomfort Current Visit: Yes Status: Acute (4) Persistent headaches Current Visit: Yes Status: Acute - Plan 1. MRI of the brain 2. Echocardiogram and carotid Doppler 3. Anti-platelet therapy and statin therapy 4. Neurology consultation 5. Physical therapy/occupational therapy/speech therapy evaluation 6. Modified barium swallow study 7. DVT prophylaxis Discharge Plan: Other Plan to discharge in: Greater than 2 days - Advance Directives Does patient have a Living Will: No Does patient have a Durable POA for Healthcare: No - Code Status/Comfort Care Code Status Assessed: Yes Code Status: Full Code Critical Care: No Time Spent Managing PTS Care (In Minutes): 50
--- NOTE | 2018-05-09 07:48 | RAD REPORT ---
EXAM DESCRIPTION: Ubaldo Single View05/08/2018 10:15 pm CLINICAL HISTORY: Chest pain COMPARISON: 2016 FINDINGS: The lung bases are hazy. Upper lobes appear clear. The heart is normal size IMPRESSION: Lung bases are hazy probably secondary to overlying soft tissue. This should be confirm ed with a lateral view
--- NOTE | 2018-05-09 07:50 | EKG ---
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
[2018-05-09] MEDS: ASPIRIN EC 81 MG TAB PO SCH (07:55)
[2018-05-09] MEDS: ENOXAPARIN 40 MG/0.4 ML SQ SCH (07:55)
--- NOTE | 2018-05-09 08:08 | P.HP ---
Certification for Inpatient Patient admitted to: Inpatient With expected LOS: >2 Midnights Patient will require the following post-hospital care: None Practitioner: I am a practitioner with admitting privileges, knowledge of patient current condition, hospital course, and medical plan of care. Services: Services provided to patient in accordance with Admission requirements found in Title 42 Section 412.3 of the Code of Federal Regulations Patient History Date of Service: 05/08/18 Reason for admission: Hypertensive emergency History of Present Illness: Patient is a 32-year-old female who presents to the hospital with poorly controlled blood pressure. Her blood pressure has been poorly controlled for quite a while. She states that her normal blood pressure runs between 170-190/ 106. She has not seen a primary care provider regarding this except for the PAs she has seen at the [facility] in [place]. She states that she has been taking carvedilol lisinopril in [facility] to keep her blood pressure controlled. However, her blood pressure still runs from 170s to 180s over 100. she started having headaches and paresthesias around her lips so she came into the hospital for further evaluation. She denies any other weakness. She does have a slight droop around the nasolabial folds. She is also complaining of blurred vision at her right eye. She also has a persistent headache. In the emergency room they were unable to get a timeline on when her symptoms started. The CT revealed findings of a possible subacute acute stroke. She will need an MRI of her brain to further evaluate this. We have also put her on a nicardipine drip to lower her blood pressure gradually. Roughly 25% over the 1st 24 hrs, and then try to completely corrected in the next 72 hr. We have also gotten a neurology consultation as well. Allergies OPIOID ANALGESICS Adverse Reaction (Uncoded 05/09/18 02:13) Unknown Home Medications: Amlodipine [Norvasc] 10 mg PO DAILY 05/09/18 Carvedilol [Coreg] 25 mg PO BID 05/09/18 Diclofenac Na [Voltaren D.R] 75 mg PO BID 05/09/18 Gabapentin [Neurontin] 300 mg PO TID 05/09/18 Potassium 99 mg PO DAILY 05/09/18 - Past Medical/Surgical History Has patient received pneumonia vaccine in the past: Yes Diabetic: No -: Depression -: HTN -: C section -: Cholecyctectomy -: tubal ligation - Family History Father Medical History: Hypertension Mother Medical History: Hypertension, Other (see notes) Notes: TIA - Social History Smoking Status: Current every day smoker Alcohol use: No CD- Drugs: No Caffeine use: Yes Place of Residence: Home Review of Systems 10-point ROS is otherwise unremarkable Physical Examination - Vital Signs Temperature: 99.2 F Blood Pressure: 205/110 Pulse: 89 Respirations: 17 Pulse Ox (%): 99 - Physical Exam General: Alert, In no apparent distress, Oriented x3 HEENT: Atraumatic, PERRLA, Mucous membr. moist/pink, EOMI, Sclerae nonicteric Neck: Supple, 2+ carotid pulse no bruit, No LAD, Without JVD or thyroid abnormality Respiratory: Clear to auscultation bilaterally, Normal air movement Cardiovascular: Regular rate/rhythm, Normal S1 S2, No murmurs Gastrointestinal: Normal bowel sounds, Soft and benign, Non-distended, No tenderness Musculoskeletal: No clubbing, No swelling, No tenderness Integumentary: No rashes Neurological: Normal gait, Normal speech, Normal tone, Sensation intact, Cranial nerves 3-12 intact, Normal affect, Abnormal strength Lymphatics: No axilla or inguinal lymphadenopathy - Studies Laboratory Data (last 24 hrs) 05/08/18 21:45: PT 12.2, INR 1.03, APTT 31.0 05/08/18 21:15: Magnesium Cancelled, Total Bilirubin Cancelled, AST Cancelled, ALT Cancelled, Alkaline Phosphatase Cancelled 05/08/18 19:10: Sodium 134 L, Potassium 2.5 L*, BUN 6 L, Creatinine 0.90, Glucose 198 H, Magnesium 1.9, Total Bilirubin 0.3, AST 22, ALT 38, Alkaline Phosphatase 91 05/08/18 19:10: WBC 16.0 H, Hgb 12.8, Hct 39.9, Plt Count 296 Assessment & Plan - Problems (Diagnosis) (1) Hypertensive emergency Current Visit: Yes Status: Acute (2) Blurred vision Current Visit: Yes Status: Acute (3) Chest discomfort Current Visit: Yes Status: Acute (4) Persistent headaches Current Visit: Yes Status: Acute (5) Acute CVA (cerebrovascular accident) Current Visit: Yes Status: Acute - Plan 1. MRI of the brain 2. Echocardiogram and carotid Doppler 3. Anti-platelet therapy and statin therapy 4. Neurology consultation 5. Physical therapy/occupational therapy/speech therapy evaluation 6. Modified barium swallow study 7. DVT prophylaxis 8. Gradual lowering of Blood pressure by 25% each day; monitor labs closely as well as neuro status - Advance Directives Does patient have a Living Will: No Does patient have a Durable POA for Healthcare: No - Code Status/Comfort Care Code Status: Full Code Critical Care: Yes Time Spent Managing PTS Care (In Minutes): 60
[2018-05-09] MEDS: AMLODIPINE 10 MG TAB PO SCH ×3 (08:54→09:49)
[2018-05-09] MEDS: GABAPENTIN 300 MG CAP PO SCH ×3 (09:50→20:22)
[2018-05-09 11:09] LABS: Urine Appearance CLOUDY; Urine Bilirubin NEGATIVE (NEG); Urine Blood NEGATIVE (NEG); Urine Color YELLOW; Urine Glucose NEGATIVE (NEG); Urine Protein 2+ (NEG); Urine Specific Gravity 1.015 (1.005-1.030); Urine pH 6.5 (5.0-7.0)
[2018-05-09 11:10] LABS: Urine Microscopic Reflex ORDER UMIC
[2018-05-09 11:20] LABS: Urine Bacteria <20 /HPF (<20); Urine Culture Reflex Order REFLEXED; Urine Mucus 1+ /HPF (NONE SEEN); Urine RBC <5 /HPF (NONE SEEN)
--- NOTE | 2018-05-09 13:30 | RAD REPORT ---
EXAM DESCRIPTION: MRI - Brain W/Wo Cont - 05/09/2018 12:44 pm CLINICAL HISTORY: CVA COMPARISON: MRA Head Wo Cont dated 05/09/2018; Head C Spine Mpr Wo Con dated 10/21/2017; Head Brain Wo Cont dated 05/08/2018 TECHNIQUE: Multi-sequence, multiplanar MR imaging of the brain was performed with contrast. FINDINGS: No intracranial hemorrhage, hydrocephalus, extra-axial fluid collection or acute infarctio n.A few small T2/FLAIR hyperintensities in the periventricular and deep white matter are seen. No philip ma or shift of midline structures. No intracranial mass. DWI is negative for acute CVA. Mild polypoid mucosal thickening is seen in both inferior maxillary antra. The paranasal sinuses and mastoids are otherwise clear. Post-contrast images show no abnormal enhancement to suggest tumor or infection. IMPRESSION: No acute intracranial abnormality is seen such as acute CVA, hemorrhage or hydrocephalus . Small areas of T2/FLAIR hyperintensity in the periventricular and deep white matter may be related to previous microinfarcts, vasculitis or less likely underlying demyelinating condition.
--- NOTE | 2018-05-09 13:38 | ECHO ---
HEIGHT: 5 ft 5 in WEIGHT: 231 lb 9.6 oz DATE OF STUDY: 05/09/[address]: Sue Calvert MD 2-DIMENSIONAL: YES M.MODE: YES DOPPLER: YES COLOR FLOW: YES TDS: NO PORTABLE: NO DEFINITY: NO BUBBLE STUDY: NO DIAGNOSIS: STROKE CARDIAC HISTORY: CATHERIZATION: NO SURGERY: NO PROSTHETIC VALVE: NO PACEMAKER: NO MEASUREMENTS (cm) DIASTOLIC (NORMALS) SYSTOLIC (NORMALS) IVSd 0.9 (0.6-1.2) LA Diam 3.6 (1.9-4.0) LVEF 64% LVIDd 4.8 (3.5-5.7) LVIDs 3.1 (2.0-3.5) %FS 35% LVPWd 1.0 (0.6-1.2) Ao Diam 2.74 (2.0-3.7) 2 DIMENSIONAL ASSESSMENT: RIGHT ATRIUM: NORMAL LEFT ATRIUM: NORMAL RIGHT VENTRICLE: NORMAL LEFT VENTRICLE: NORMAL TRICUSPID VALVE: NORMAL MITRAL VALVE: NORMAL PULMONIC VALVE: NORMAL AORTIC VALVE: NORMAL PERICARDIAL EFFUSION: NONE AORTIC ROOT: NORMAL LEFT VENTRICULAR WALL MOTION: NORMAL. DOPPLER/COLOR FLOW: NORMAL. COMMENTS: NORMAL 2D ECHO WITH DOPPLER. TECHNOLOGIST: TRISTEN MURPHY
--- NOTE | 2018-05-09 13:39 | RAD REPORT ---
EXAM DESCRIPTION: MRI - MRA Head Wo Cont - 05/09/2018 12:44 pm CLINICAL HISTORY: Possible infarction CVA COMPARISON: Head Brain Wo Cont dated 05/08/2018 FINDINGS: 3D noncontrast [id number] MR angiography of the [place] was performed. No flow significant flow abnormality of the [place] is identified. No aneurysm, flow-limitin g stenosis or vascular malformation seen. The left vertebral artery is dominant. IMPRESSION: No significant flow abnormality of the [place] is seen.
--- NOTE | 2018-05-09 14:15 | RAD REPORT ---
EXAM DESCRIPTION: US - Abdomen Pelvis Scan US - 05/09/2018 1:11 pm CLINICAL HISTORY: High blood pressure COMPARISON: No comparisons FINDINGS: The bilateral kidneys are normal in size, the right measuring 13.1 x 6.3 x 5.0 cm and the left measuring 10.1 x 5.2 x 4.3 cm. Aortic velocity: 185 cm/second Right proximal renal artery: 156 cm/second Right mid renal artery: 316 cm/second Right distal renal artery: 292 cm/second Right renal arcuate artery resistive index: 0.7 Right renal artery / aorta ratio: 1.7 Left proximal renal artery: 150 cm/second Left mid renal artery: 397 cm/second Left distal renal artery: 250 cm/second Left renal arcuate artery resistive index: 0.6 Left renal artery/aorta ratio: 2.1 Normal waveforms demonstrated within the bilateral renal arteries. IMPRESSION: A hemodynamically significant renal artery stenosis is not seen.
--- NOTE | 2018-05-09 14:33 | RAD REPORT ---
EXAM DESCRIPTION: MRI - MRA Neck W/Wo Cont - 05/09/2018 12:44 pm CLINICAL HISTORY: CVA COMPARISON: Brain W/Wo Cont dated 05/09/2018; MRA Head Wo Cont dated 05/09/2018; Head Brain Wo Cont [place] 12/12/2017; Head Brain Wo Cont dated 05/08/2018 FINDINGS: Contrast enhance 2D [id number] MR angiography of the neck vessels was performed. A left aortic arch is noted with a normal 3 vessel origin of the great vessels. No evidence of significant carotid stenosis seen. Mild narrowing of the right carotid bulb is present . No carotid dissection is evident. Antegrade flow is seen in both vertebral arteries. IMPRESSION: No significant flow abnormality of the neck vessels is seen.
--- NOTE | 2018-05-09 15:58 | P.PN ---
Subjective Date of Service: 05/09/18 Chief Complaint: Hypertensive emergency Subjective: Tolerating diet, Ambulating, Improving, Working w/ PT, Doing well Review of Systems General: As per HPI Physical Examination - Vital Signs Temperature: 99.2 F Blood Pressure: 184/106 Pulse: 87 Respirations: 21 Pulse Ox (%): 99 - Physical Exam General: Alert, In no apparent distress HEENT: Atraumatic, PERRLA, EOMI Neck: Supple, JVD not distended Respiratory: Clear to auscultation bilaterally, Normal air movement Cardiovascular: Regular rate/rhythm, Normal S1 S2 Gastrointestinal: Normal bowel sounds, No tenderness Musculoskeletal: No tenderness Integumentary: No rashes Neurological: Normal speech, Normal tone, Normal affect Lymphatics: No axilla or inguinal lymphadenopathy - Studies Laboratory Data (last 24 hrs) 05/08/18 21:45: PT 12.2, INR 1.03, APTT 31.0 05/08/18 21:15: Magnesium Cancelled, Total Bilirubin Cancelled, AST Cancelled, ALT Cancelled, Alkaline Phosphatase Cancelled 05/08/18 19:10: Sodium 134 L, Potassium 2.5 L*, BUN 6 L, Creatinine 0.90, Glucose 198 H, Magnesium 1.9, Total Bilirubin 0.3, AST 22, ALT 38, Alkaline Phosphatase 91 05/08/18 19:10: WBC 16.0 H, Hgb 12.8, Hct 39.9, Plt Count 296 Medications List Reviewed: Yes Assessment & Plan - Problems (Diagnosis) (1) Hypertensive emergency Onset Date: 05/09/18 Current Visit: Yes Status: Acute Plan: Hypertensive emergency. -currently on p.r.n. medication along with labetalol and hydralazine. -Restarted on home medication of amlodipine and Coreg -patient will need to have a other hypertensive medication added to her regimen if her blood pressure is not been able to control with current regimen that she has at home. Will monitor for next 8-10 hr and adjust the medication as patient 's blood pressure goal should be 160/90 10 not to drop it to rapidly as it would increase the risk of having acute cerebral infarct. (2) Persistent headaches Onset Date: 05/09/18 Current Visit: Yes Status: Acute Plan: Most likely secondary to hypertensive emergency. Will provide p.r.n. pain medication (3) Blurred vision Onset Date: 05/09/18 Current Visit: Yes Status: Acute Plan: Most likely secondary to hypertensive emergency. Will continue to monitor closely. Neurology has been consulted. Head CT and MRI are negative for any acute CVA. Patient is to continue taking all her medication as prescribed with a goal blood pressure 160/90. Will adjust blood pressure medication as mentioned above if needed. Discharge Plan: Home Plan to discharge in: 48 Hours - Code Status/Comfort Care Code Status Assessed: Yes Critical Care: Yes
[2018-05-09 19:52] LABS: Potassium 3.5 mmol/L (3.5-5.1)
[2018-05-09] MEDS ORDERED: POTASSIUM PHOS IN 0.9 % NACL 15 MMOL/250 ML BAG IV ONE (20:18)
[2018-05-09] MEDS: CARVEDILOL 25 MG TAB PO SCH (20:23)
[2018-05-09] MEDS ORDERED: ATORVASTATIN 20 MG TAB PO SCH (21:00)
[2018-05-09] MEDS: NICOTINE 21 MG/PAT TD SCH (21:11)
[2018-05-10 05:47] LABS: Magnesium 2.2 mg/dL (1.8-2.4); Phosphorus 3.2 mg/dL (2.5-4.9); Potassium 3.4 mmol/L (3.5-5.1)
[2018-05-10] MEDS ORDERED: POTASSIUM 25 MEQ EFFERV TAB PO ONE (07:00)
[2018-05-10] MEDS: NICOTINE 21 MG/PAT TD SCH (08:25)
[2018-05-10] MEDS: AMLODIPINE 10 MG TAB PO SCH (08:26)
[2018-05-10] MEDS: ENOXAPARIN 40 MG/0.4 ML SQ SCH (08:26)
[2018-05-10] MEDS: GABAPENTIN 300 MG CAP PO SCH ×3 (08:26→20:26)
[2018-05-10] MEDS: ASPIRIN EC 81 MG TAB PO SCH (08:26)
[2018-05-10] MEDS: CARVEDILOL 25 MG TAB PO SCH ×2 (08:26→20:25)
--- NOTE | 2018-05-10 09:45 | P.PN ---
Subjective Date of Service: 05/10/18 Chief Complaint: Hypertensive emergency Pt seen and examined at bedside with RN. Chart Reviewed. -Currently BP WNL -No more Head ache noted Review of Systems General: As per HPI Physical Examination - Vital Signs Temperature: 98.7 F Blood Pressure: 183/110 Pulse: 91 Respirations: 18 Pulse Ox (%): 100 - Physical Exam General: Alert, In no apparent distress HEENT: Atraumatic, PERRLA, EOMI Neck: Supple, JVD not distended Respiratory: Clear to auscultation bilaterally, Normal air movement Cardiovascular: Regular rate/rhythm, Normal S1 S2 Gastrointestinal: Normal bowel sounds, No tenderness Musculoskeletal: No tenderness Integumentary: No rashes Neurological: Normal speech, Normal tone, Normal affect Lymphatics: No axilla or inguinal lymphadenopathy - Studies Medications List Reviewed: Yes Assessment & Plan - Problems (Diagnosis) (1) Hypertensive emergency Onset Date: 05/09/18 Current Visit: Yes Status: Acute Plan: Hypertensive emergency. Now resolved -currently on p.r.n. medication along with labetalol and hydralazine. -On amlodipine and Coreg -Now BP WNL ranges -No further complains of MATHEW -Transfer to the floor and monitor for 24hrs (2) Persistent headaches Onset Date: 05/09/18 Current Visit: Yes Status: Resolved Plan: Most likely secondary to hypertensive emergency. Will provide p.r.n. pain medication (3) Blurred vision Onset Date: 05/09/18 Current Visit: Yes Status: Acute Plan: Most likely secondary to hypertensive emergency. -Will continue to monitor closely. -Neurology has been consulted. -Head CT and MRI are negative for any acute CVA. -Patient is to continue taking all her medication as prescribed with a goal blood pressure 160/90. -Will adjust blood pressure medication as mentioned above if needed. Discharge Plan: Home Plan to discharge in: 48 Hours - Code Status/Comfort Care Code Status Assessed: Yes Critical Care: Yes
[2018-05-10] MEDS: ACETAMINOPHEN 500 MG TAB PO PRN (14:38)
[2018-05-10] MEDS: KCL 20 MEQ/100 mL IVPB 20 MEQ/100 ML BAG IV SCH ×2 (15:40→18:46)
[2018-05-10] MEDS ORDERED: NA CHLORIDE 0.9% 250 ML ONE (15:42)
[2018-05-10] MEDS ORDERED: ATORVASTATIN 80 MG TAB PO SCH (21:00)
--- NOTE | 2018-05-10 22:44 | CON ---
Reason For Consultation: Consultation called because of possible stroke with hypertensive emergency. History Of Present Illness: Ms. Magallanes is a 32-year-old with malignant uncontrolled hypertension wit h blood pressures ranging up to the systolics in the low 200s. She came into [facility] on 05/08/2018, with some facial paresthesias, unclear if it is 1 side versus the other and some drooping around her lips. There was a drooping of the nasolabial folds as well. In addition, she had blurre d vision in the right eye. Head CT scan has suggested a possibility of a subacute stroke while in [facility] emergency room, this was done at 8:36 p.m. the patient's symptom onset was not that clearly docume nted and it should be noted that she apparently woke up with the symptoms earlier in the day, so agai n unclear onset of symptoms and therefore not a candidate for tissue plasminogen activator. The head CT scan did show a 6-mm area of diminished attenuation in the right frontal lobe, suggesting the pos sibility of an acute stroke. Her MRI subsequently done later around 12:44 p.m. showed no acute intra cranial abnormalities, no hemorrhage, no hydrocephalus; however, there were small areas of T2 and FLA IR hyperintensity in the periventricular deep white matter, likely related to small vessel ischemic d isease which is most likely secondary to chronic uncontrolled hypertension. She was initially admitt ed to the ICU for management of her blood pressures. Her symptoms largely resolved by the following day of hospitalization. Her stroke workup included an echocardiogram showing ejection fraction of 64 % and that was a normal study. Magnetic resonance angiogram of her head and neck showed no significa nt abnormalities, no flow obstruction. Blood work showed an elevated white count, initially 53792; b y the second day of admission 14.9 thousand. Neutrophils were 91.7%. Her urinalysis did show trace esterase with 5-10 epithelial cells. Bacteria were less than 20. She was treated with aspirin 160 m g daily, Lipitor high dose 80 mg daily, and Norvasc to help maintain blood pressures to 180 or less. The patient is subsequently discharged to the floor after she is fully returned to her baseline [facility] er. Past Medical History: Uncontrolled hypertension, depression. Surgical History: , cholecystectomy, and tubal ligation. Family History: Positive for hypertension in father and mother as well as transient ischemic attack in mother and father. Social History: Daily cigarette consumption. Denies alcohol or illegal drug use. Allergies: OPIOIDS. Home Medications: Norvasc 10 mg daily, carvedilol 25 mg twice daily, Voltaren 75 mg twice daily, Jackie rontin 200 mg 3 times daily, and potassium supplement 99 mg daily. Review of Systems: Aside from mentioned above, she denies any recent fevers, chills, nausea, vomiting, myalgias, arthral gias, rash, headache, or weight change. No psychiatric complaints. No gastrointestinal or genitouri nary complaints. Physical Examination: Vital Signs: Blood pressure 173/97, pulse 81, respiratory rate 17, temperature 99.5, and oxygen satu ration 97%. Weight 237 pounds, height 5 feet and 5 inches, and BMI 39.5. General: Ms. Magallanes is resting comfortably in bed. She is in no acute distress. HEENT: She is normocephalic, atraumatic. Sclerae are anicteric. Oropharynx is pink and moist. Neck: Supple. Chest: Clear. Heart: Regular. Extremities: Show no clubbing, cyanosis, or edema. Neurological: She is alert and oriented to person, place, time, and situation. She has no expressiv e or receptive aphasias. Cranial nerves 2 through 12 are intact. Full visual ruggiero to confrontatio n. Motor examination, 5/5 strength proximally and distally in upper and lower extremities. Her sens ory exam is intact to light touch, pinprick, and temperature in the arms and legs. Her coordination is intact in upper and lower extremities. Gait, normal stance, stride, and arm swing. Reflexes 2+ i n upper and lower extremities. Assessment: Ms. Magallanes is a 32-year-old patient with hypertensive emergency and history of small ves carolin ischemic disease. She does not have a stroke by MRI, likely had a reversible deficit perhaps rel ated to her severe uncontrolled hypertension. Plan: 1.The patient should have aggressive management of blood pressure, keep a diary at home, try to targ et blood pressures less than 140, ideally around 120-130 systolic. 2.Aspirin 325 mg daily. 3.Folate 1 mg daily. 4.The patient is advised on the importance of weight loss, regular exercise, and hydration, stopping use of cigarette smoking, caffeinated beverages, and getting a full 8 hours of rest at night. 5.After discharge, she may follow up with Dr. Arevalo in clinic 1 month later. REFUGIO Voice ID: [id number] Report ID: [id number]
[2018-05-11] MEDS ORDERED: POTASSIUM 25 MEQ EFFERV TAB PO ONE (05:00)
[2018-05-11] MEDS: ENOXAPARIN 40 MG/0.4 ML SQ SCH (08:17)
[2018-05-11] MEDS: NICOTINE 21 MG/PAT TD SCH (08:17)
[2018-05-11] MEDS: GABAPENTIN 300 MG CAP PO SCH ×2 (08:18→14:00)
[2018-05-11] MEDS: ASPIRIN EC 81 MG TAB PO SCH (08:18)
[2018-05-11] MEDS: AMLODIPINE 10 MG TAB PO SCH (08:18)
[2018-05-11] MEDS: CARVEDILOL 25 MG TAB PO SCH (08:19)
--- NOTE | 2018-05-11 13:54 | P.DS ---
Admission Date: 05/08/18 Discharge Date: 05/11/18 Disposition: ROUTINE DISCHARGE Discharge Condition: GOOD Reason for Admission: Hypertensive emergency - Problems (1) Hypertensive emergency Onset Date: 05/09/18 Current Visit: Yes Status: Acute (2) Persistent headaches Onset Date: 05/09/18 Current Visit: Yes Status: Resolved (3) Blurred vision Onset Date: 05/09/18 Current Visit: Yes Status: Acute Brief History of Present Illness: Patient is a 32-year-old female who presents to the hospital with poorly controlled blood pressure. Her blood pressure has been poorly controlled for quite a while. She states that her normal blood pressure runs between 170-190/ 106. She has not seen a primary care provider regarding this except for the PAs she has seen at the [facility] in [place]. She states that she has been taking carvedilol lisinopril in [facility] to keep her blood pressure controlled. However, her blood pressure still runs from 170s to 180s over 100. she started having headaches and paresthesias around her lips so she came into the hospital for further evaluation. She denies any other weakness. She does have a slight droop around the nasolabial folds. She is also complaining of blurred vision at her right eye. She also has a persistent headache. In the emergency room they were unable to get a timeline on when her symptoms started. The CT revealed findings of a possible subacute acute stroke. She will need an MRI of her brain to further evaluate this. We have also put her on a nicardipine drip to lower her blood pressure gradually. Roughly 25% over the 1st 24 hrs, and then try to completely corrected in the next 72 hr. We have also gotten a neurology consultation as well. Hospital Course: Overall during the hospital stay patient remained stable The patient was initially admitted to the hospital for a pretense in emergency. Was started on initially on IV hydralazine and IV labetalol along with home medication. Patient hypertensive emergency did resolve. Cardiology was consulted who agreed with the plan of restarting her home medication. Initially patient was admitted to the hospital for possibility of TIA. Head CT MRI a carotid Doppler and echocardiogram was done here in the hospital which were all within normal limits and negative for acute CVA. Neurology was consulted who agreed with the plan of keeping patient on aspirin and giving her medication for her blood pressure with a goal of 160/90. Patient and family both were educated extensively regarding the need to control her blood pressure appropriately and both demonstrated understanding and thus patient was discharged home under stable condition. Vital Signs/Physical Exam: Temp Pulse Resp BP Pulse Ox 99.1 F 78 20 180/99 H 98 05/11/18 12:00 05/11/18 12:00 05/11/18 12:00 05/11/18 12:00 05/11/18 12:00 General: Alert, In no apparent distress HEENT: Atraumatic, PERRLA, EOMI Neck: Supple, JVD not distended Respiratory: Clear to auscultation bilaterally, Normal air movement Cardiovascular: Regular rate/rhythm, Normal S1 S2 Gastrointestinal: Normal bowel sounds, No tenderness Musculoskeletal: No tenderness Integumentary: No rashes Neurological: Normal speech, Normal tone, Normal affect Lymphatics: No axilla or inguinal lymphadenopathy Laboratory Data at Discharge: WBC 14.9 K/uL (4.3-10.9) H 05/09/18 05:13 Hgb 13.0 g/dL (12.0-15.0) 05/09/18 05:13 Hct 40.2 % (36.0-45.0) 05/09/18 05:13 Plt Count 312 K/uL (152-406) 05/09/18 05:13 PT 12.2 SECONDS (9.5-12.5) 05/08/18 21:45 INR 1.03 05/08/18 21:45 APTT 31.0 SECONDS (24.3-36.9) 05/08/18 21:45 Sodium 142 mmol/L (136-145) 05/10/18 04:42 Potassium 3.5 mmol/L (3.5-5.1) 05/11/18 10:50 BUN 14 mg/dL (7-18) 05/10/18 04:42 Creatinine 0.90 mg/dL (0.55-1.3) 05/10/18 04:42 Glucose 145 mg/dL (74-106) H 05/10/18 04:42 Phosphorus 3.2 mg/dL (2.5-4.9) D 05/10/18 04:42 Magnesium 2.2 mg/dL (1.8-2.4) 05/10/18 04:42 Total Bilirubin 0.4 mg/dL (0.2-1.0) 05/09/18 05:13 AST 22 U/L (15-37) 05/09/18 05:13 ALT 43 U/L (12-78) 05/09/18 05:13 Alkaline Phosphatase 94 U/L (45-117) 05/09/18 05:13 Triglycerides 243 mg/dL (<150) H 05/09/18 05:13 Cholesterol 247 mg/dL (<200) H 05/09/18 05:13 HDL Cholesterol 29 mg/dL (40-60) L 05/09/18 05:13 Cholesterol/HDL Ratio 8.52 05/09/18 05:13 Home Medications: Amlodipine [Norvasc*] 10 mg PO DAILY 05/09/18 Carvedilol [Coreg*] 25 mg PO BID 05/09/18 Diclofenac Na [Voltaren D.r*] 75 mg PO BID 05/09/18 Gabapentin [Neurontin*] 300 mg PO TID 05/09/18 Potassium 99 mg PO DAILY 05/09/18 Diet: Regular Activity: Ad levar Followup: Francisco Veronica MD [ACTIVE - CAN ADMIT] - 1 Week Cam Arevalo MD [ASSOCIATE-ACTIVE - CAN ADMIT] - 1 Week
[2018-05-11] MEDS ORDERED: LABETALOL HCL 100 MG/20 ML IV PRN (16:29)
== END 2018-05-11 18:30 | disposition home or self-care (01) | DRG 69 ==
LOC: ER 18:31 → ERHOLD 22:12 → 3RD-ICU 05-09 00:46 → 2ND 05-10 10:55
PROVIDERS: ADMIT Hospitalist; ATTEND Family Medicine
DX: G45.9 Transient cerebral ischemic attack, unspecified (principal); I16.1 Hypertensive emergency; I10 Essential (primary) hypertension; R51 Headache; H53.8 Other visual disturbances; R20.2 Paresthesia of skin; R29.810 Facial weakness; F32.9 Major depressive disorder, single episode, unspecified; F17.210 Nicotine dependence, cigarettes, uncomplicated; Z88.5 Allergy status to narcotic agent; R29.701 NIHSS score 1
CPT/HCPCS: 36415; 70450; 70544; 70549; 70553; 71045; 80048; 80053; 80061; 80076; 81003; 81015; 82962; 83735; 84100; 84132; 85025; 85610; 85730; 87086; 87088; 93005; 93306; 93975; 96365; 96366; 96375; 97163; 99285; A9577; J0360; J1100; J1650; J2765; J7030